=== PATIENT | female | born 1995 | race Caucasian/White ===

== ENCOUNTER 2017-10-30 08:12 | Emergency (ER) | payer OTHER ==
[~2017-10-30] VITALS: Ht 160 cm; Wt 70.3 kg
[2017-10-30 08:16] VITALS: BP 109/72
--- NOTE | 2017-10-30 08:22 | NUR ---
PT TAKEN TO BED 10
--- NOTE | 2017-10-30 08:45 | NUR ---
Pt c/o LLQ abd pain x 3 wk. Denies vomitting, diarrhea, but has nausea. No issue with B/B. Last LMP 10/14/2017. Pain is 9/10 and radiates to RLQ. VSS. NAD
--- NOTE | 2017-10-30 08:45 | NUR ---
Ultrasound at bedside.
[2017-10-30 09:59] LABS: APPEARANCE,URINE CLEAR (CLEAR); BILIRUBIN,URINE NEGATIVE (NEGATIVE); BLOOD, URINE NEGATIVE (NEGATIVE); COLOR,URINE YELLOW (YELLOW); LEUKOCYTE ESTERASE ,URINE NEGATIVE (NEGATIVE); NITRITE, URINE NEGATIVE (NEGATIVE); UGLUCOSE NEGATIVE (NEGATIVE)
[2017-10-30] MEDS ORDERED: KETOROLAC 30 MG/ML VIAL IM ONE (10:05)
[2017-10-30 10:39] VITALS: BP 105/60
--- NOTE | 2017-10-30 10:39 | NUR ---
Patient discharged with v/s stable. Written and verbal after care instructions given and explained. Patient alert, oriented and verbalized understanding of instructions. Ambulatory with steady gait. All questions addressed prior to discharge. ID band removed. Patient advised to follow up with PMD. Rx of ibuprofen and zofran given. Patient educated on indication of medication including possible reaction and side effects. Opportunity to ask questions provided and answered.
== END 2017-10-30 10:39 | disposition home or self-care (01) ==
LOC: MED 08:12
DX: N83.202 Unspecified ovarian cyst, left side (principal)
CPT/HCPCS: 76856; 81003; 81025; 96372; 99285; J1885; Q0092